=== PATIENT | female | born 1935 | race African-American/Black ===

== ENCOUNTER 2018-04-17 07:12 | Day surgery (SDC) | payer OTHER ==
[2018-04-09 11:48] VITALS: BMI 34.0
[2018-04-17] MEDS ORDERED: LIDOCAINE HCL 2% (20ML MULTI-DOSE VIAL) NR ONE (07:42)
[2018-04-17] MEDS ORDERED: ONDANSETRON 4 MG/2 ML VIAL IVPUSH PRN (08:25)
[2018-04-17] MEDS ORDERED: oxyCODONE HCL 5 MG TABLET PO PRN (08:25)
[2018-04-17] MEDS ORDERED: LACTATED RINGERS SOLUTION 1,000 ML IV SCH (08:30)
[2018-04-17] MEDS ORDERED: SUCCINYLCHOLINE CHLORIDE 200 MG/10 ML VIAL ONE (09:32)
[2018-04-17] MEDS ORDERED: PROPOFOL 20 ML ONE ×3 (09:32→09:33)
[2018-04-17] MEDS ORDERED: DEXAMETHASONE SOD PHOSPHATE 4 MG/1 ML VIAL ONE (09:35)
[2018-04-17] MEDS ORDERED: ONDANSETRON 4 MG/2 ML VIAL ONE ×2 (09:35→10:25)
[2018-04-17] MEDS ORDERED: ceFAZolin SODIUM 1 GM VIAL ONE (09:35)
[2018-04-17] MEDS ORDERED: LIDOCAINE HCL/PF 2% SDV 5ML VIAL ONE (09:43)
[2018-04-17] MEDS ORDERED: ACETAMINOPHEN 500 MG TABLET (FP) PO PRN (10:25)
--- NOTE | 2018-04-17 10:25 | OP ---
Operative Note - Note: Operative Date: 04/17/18 Pre-Operative Diagnosis: Right wrist/hand carpal tunnel syndrome Operation: Right wrist/hand open carpal tunnel release Findings: Tourniquet Pressure: 250mmHg Tourniquet Time: 22 min. Post-Operative Diagnosis: Same as Pre-op Surgeon: Jonathan Duncan Php Lamp Developer: Alec Duncan Anesthesiologist/CORRECTIVE THERAPY AIDE TEACHER: Fidelia Coulter Anesthesia: General Estimated Blood Loss (mls): 0 Fluid Volume Replaced (mls): 400 (Crystalloid) Operative Report Dictated: Yes
--- NOTE | 2018-04-17 10:27 | PN ---
Progress Note (short form) - Note Progress Note: 82F s/p right open carpal tunnel release POD #0. -Pain control. -Incentive spirometry. -NWB RUE. -Keep dressing clean & dry. -Percocet, meloxicam ordered to pharmacy for analgesia; OK to use OTC NSAID's instead. -Elevate wrist/hand above level of heart. -Discharge home: f/u [facility] [place] [facility] Fri04/22/2018; call for appointment: . Jonathan Duncan MD (Orthopaedic Surgery).
[2018-04-17 11:16] VITALS: TEMP 97.5
[2018-04-17 12:57] VITALS: BP 153/80; PULSE 61
[2018-04-17] MEDS ORDERED: LISINOPRIL 5 MG TABLET (FP) PO SCH (22:00)
[2018-04-18] MEDS ORDERED: LEVOTHYROXINE NA 75 MCG TABLET (FP) PO SCH (07:00)
--- NOTE | 2018-04-20 12:17 | OP ---
Date of Operation: 04/17/2018 Surgeon: Jonathan Duncan MD Telex Operator: Alec Duncan MD Pre-Operative Diagnosis: Right wrist/hand carpal tunnel syndrome. Post-Operative Diagnosis: Right wrist/hand carpal tunnel syndrome. Surgical Procedure: Right open carpal tunnel release. Anaesthesia: General, LMA. Position: Supine Incision: Longitudinal. Tourniquet Pressure: 250mmHg. Tourniquet Time: 22 minutes. Estimated Blood Loss: 0cc. Intravenous Fluid: 400cc. Specimens: None. Drains: None. Complications: None. Urine output: None. Bacteriology: None. Transfusions: None. Closure: 3-0 Biosyn. Indications: Kady Mendieta is an 82 year old female who was indicated for a right open carpal tunnel release in order to ameliorate the symptoms associated with carpal tunnel syndrome, and improve the use of her hand. The patient was identified in the holding area by her armband. A long discussion was held with the patient regarding the risks, benefits and alternatives of the above-named procedure. Risks include but are not limited to : pain, bleeding, infection, damage to surrounding structures (including nerves , blood vessels, skin, ligaments, tendons and bone), reflex sympathetic dystrophy (RSD), incomplete carpal tunnel release, wound complications, need for further surgery, blood clots, myocardial infarction, pulmonary embolism, anesthesia complications, compartment syndrome, limb loss, limp, loss of function, and . Benefits as mentioned above. Alternatives include no surgery. All questions were answered. The patient appeared to understand and agreed to the procedure. Informed consent was obtained, witnessed and verified. The patients correct operative limb - the right upper extremity - was marked, and the patient was taken to the operating room after being seen by the anesthesia and nursing staff. Procedure: The patient was brought into the operating room, placed supine on the OR table and secured with a safety strap. Consent and the operative site was again verified with the patient and nursing and anaesthesia staff. Anaesthesia was then administered without complication. 2g IV Ancef was administered. A time-out was done led by me, the attending surgeon. The patient was positioned with all bony prominences well padded. A tourniquet was placed proximally on the right arm and set to 250mmHg. The operative limb was prepped in standard sterile fashion using betadine prep & scrub, wiped off with alcohol, DuraPrep applied, and then free draped. A time-out was repeated, the right upper extremity was exsanguinated using an Esmarch, the tourniquet was inflated, and the case began. A longitudinal incision was made in line with the radial border of the fourth finger, extending from the volar wrist crease proximally to the intersection of the Sebastian cardinal line. Ragnell retractors were used facilitate visualization of the wound. Sharp dissection was carried through the subcutaneous fat and palmar aponeurosis down to the level of the transverse carpal ligament (TCL). The palmaris brevis muscle was visualized, and its ulnar-most fibers were gently feathered off the underlying TCL. The TCL was then incised longitudinally and elevated using a mosquito clamp as the wrist was flexed. With the wrist maintained in a flexed position, the TCL was fully released proximally and distally using Metzenbaum scissors. Proximally, the distal deep fascia of the forearm, and the palmar aponeurosis were released along with the TCL. Distally, great care was taken not to extend the reach of the scissors more than 3-5mm distal to the distal extent of the TCL to avoid vascular injury. With finger palpation, full release of the carpal tunnel was assured. A freer elevator was used to mobilize the free flaps of the incised TCL up and off the median nerve, again ensuring its full release. The median nerve was visualized and appeared pale. The palmar cutaneous branch of the median nerve was not seen. The wound was then copiously irrigated using normal saline solution. The skin was closed using a 3-0 nylon suture in simple interrupted fashion. A sterile compressive dressing was applied. The tourniquet was released at a final time of 22 minutes. The sponge and needle counts were correct at the end of the case and I, the attending surgeon, was present and scrubbed throughout the case. The patient was then transferred to the recovery room in stable condition, as per the anesthesia team, having tolerated the procedure well. MD PADMINI Saldana/[id number] MTDD
== END 2018-04-17 12:50 | disposition home or self-care (01) ==
LOC: FASU 07:12
PROVIDERS: ATTEND Orthopaedic Surgery Adult Reconstructive Orthopaedic Surgery
PROC: 01N50ZZ Release Median Nerve, Open Approach (ICD-10-PCS; principal; 2018-04-17 08:45)
DX: G56.01 Carpal tunnel syndrome, right upper limb (principal)
CPT/HCPCS: 94760